=== PATIENT | female | born 1970 | race African-American/Black ===

== ENCOUNTER → 2016-11-12 17:26 | Outpatient (CLI) | payer BC | END | disposition home or self-care (01) | LOC: D.MAMMO 10-16 09:00 | DX: Z12.31 Encounter for screening mammogram for malignant neoplasm of breast (principal) ==

== ENCOUNTER → 2017-11-17 07:48 | Outpatient (CLI) | payer BC | LOC: D.MAMMO 07:48 | DX: Z12.31 Encounter for screening mammogram for malignant neoplasm of breast (principal) ==

== ENCOUNTER → 2017-12-11 13:55 | Outpatient (CLI) | payer BC | END | disposition home or self-care (01) | LOC: D.US 13:55 → D.MAMMO 14:00 | DX: N60.01 Solitary cyst of right breast (principal) ==

== ENCOUNTER 2019-03-24 09:00 | Outpatient (CLI) | payer BC | END 2019-03-24 10:00 | disposition home or self-care (01) | LOC: D.MAMMO 09:00 | PROVIDERS: ATTEND Obstetrics & Gynecology | DX: Z12.31 Encounter for screening mammogram for malignant neoplasm of breast (principal) ==

== ENCOUNTER → 2020-03-27 09:00 | Outpatient (CLI) | payer BC | END | disposition home or self-care (01) | LOC: D.MAMMO 09:00 | PROVIDERS: ATTEND Obstetrics & Gynecology | DX: Z12.31 Encounter for screening mammogram for malignant neoplasm of breast (principal) ==